=== PATIENT | female | born 1955 | race Caucasian/White ===

== ENCOUNTER → 2017-11-29 | Outpatient (CLI) | payer OTHER ==
--- NOTE | 2017-11-29 19:30 | Diagnostic Imaging Report ---
INDICATION: Pain around the left nipple. COMPARISON: No prior mammograms are available for comparison. EXAMINATION: 2D and 3D bilateral diagnostic mammography was performed with CAD. The current study was also evaluated with a Computer Aided Detection (CAD) system. FINDINGS: Both breasts are heterogeneously dense, limiting the sensitivity of mammography. There are vascular calcifications, bilaterally. No mass or malignant appearing microcalcifications are seen. The axillae are unremarkable. IMPRESSION: BI-RADS category 0. No mammographic features suspicious for malignancy are identified. Even so, sonographic interrogation of the area of pain around the left nipple is recommended. ACR BI-RADS Category 0: Incomplete. (Needs additional imaging evaluation). Result letter will be mailed to the patient. Note: At least 10% of breast cancer is not imaged by mammography. Dictated by: Dictated on workstation # [id number]
--- NOTE | 2017-11-29 19:33 | Diagnostic Imaging Report ---
INDICATION: Left breast pain. FINDINGS: Sonographic interrogation of all four quadrants and the retroareolar regions of the left breast were obtained. No sonographic abnormality is identified. No solid or cystic mass is detected. IMPRESSION: No sonographic abnormality is identified. Continued clinical followup is recommended. ACR BI-RADS Category 1: Negative. Dictated by: Dictated on workstation # [id number]
== END ==
LOC: RAD 13:00
PROVIDERS: ATTEND Nurse Practitioner Family
DX: N64.4 Mastodynia (principal)
CPT/HCPCS: 76641; 77066